=== PATIENT | female | born 1950 | race Caucasian/White ===

== ENCOUNTER 2017-04-11 09:24 | Emergency (ER) | payer MEDICARE, OTHER ==
[2017-04-11 09:58] LABS: RED BLOOD COUNT 4.91 M/UL (4.00-5.10); WHITE BLOOD COUNT 11.5 K/UL (4.5-11.0)
[2017-04-11 10:51] LABS: BUN/CREATININE RATIO 15 (0-10)
== END 2017-04-11 13:50 | disposition home or self-care (01) ==
LOC: ER1 09:24
PROVIDERS: Family Medicine
DX: R07.89 Other chest pain (principal); C50.919 Malignant neoplasm of unspecified site of unspecified female breast; E87.6 Hypokalemia; Z79.82 Long term (current) use of aspirin
CPT/HCPCS: 36415; 71010; 80053; 82550; 82553; 83874; 84484; 85025; 85379; 93005; 96374; 99285; J1885

== ENCOUNTER → 2021-09-22 | Outpatient (CLI) | payer OTHER | LOC: KOH-I 09:56 | DX: R14.0 Abdominal distension (gaseous) (principal) | CPT/HCPCS: 74018 ==